=== PATIENT | female | born 1970 | race Caucasian/White ===

== ENCOUNTER 2023-06-29 07:39 | Emergency (ER) | payer SELFPAY ==
[2023-06-29] VITALS (9 sets, daily range): BP systolic 135–185; BP diastolic 91–128
[~2023-06-29] VITALS: Ht 170.2 cm; Wt 72.5 kg
[~2023-06-29 07:39] MED LIST: CEPHALEXIN500 MG PO; CIPRO500 MG OR; LISINOPRIL20 MG PO; LORTAB 5 OR; NAPROSYN500 MG PO; PROTONIX40 MG PO; ROBITUSSIN AC10 ML PO; SLOW FE160 MG PO; ULTRAM50 M1 PO; XANAX0.5 MG OR
[2023-06-29] MEDS ORDERED: TRAMADOL HYDROC50 M1 PO (10:02)
[2023-06-29] MEDS ORDERED: NAPROXEN500 MG PO (10:02)
[2023-06-29] MEDS ORDERED: PREDNISONE50 MG PO (10:02)
[2023-06-29] MEDS ORDERED: VOLTAREN1%GEL TOP (10:02)
== END 2023-06-29 10:18 | disposition home or self-care (01) | DRG 552 ==
LOC: ED 07:39
DX: M54.2 Cervicalgia (principal); M25.512 Pain in left shoulder; I10 Essential (primary) hypertension; F17.200 Nicotine dependence, unspecified, uncomplicated